=== PATIENT | female | born 1990 | race Caucasian/White ===

== ENCOUNTER 2020-12-03 13:52 | Emergency (ER) | payer OTHER, MEDICAID, SELFPAY ==
[2020-12-03 14:05] VITALS: BP 148/93; PULSE 87; RESP 18; TEMP 36.6; O2SAT 99; BMI 32.4
[2020-12-03 14:11] LABS: Add Manual Diff / Slide Review NO; Basophils Absolute Auto 100 /uL (0-100); Basophils Percent Auto 0.5 % (0-2); Eosinophils Absolute Auto 100 /uL (0-450); Eosinophils Percent Auto 0.5 % (2-4); Hematocrit 41.2 % (36-46); Hemoglobin 14.3 g/dL (12.0-16.0); Lymphocytes Absolute Auto 1900 /uL (1100-4500); Lymphocytes Percent Auto 18.9 % (25-40); Mean Corpuscular HGB Conc 34.8 % (30-36); Mean Corpuscular Hemoglobin 31.8 PG (26-34); Mean Corpuscular Volume 91.6 fL (80-100); Monocytes Absolute Auto 700 /uL (0-900); Monocytes Percent Auto 6.7 % (3-14); Neutrophils Absolute Auto 7500 /uL (1500-7000); Neutrophils Percent Auto 73.4 % (50-75); Platelet Count 245 X10^3/uL (150-400); Red Blood Cell Count 4.49 X10^6/uL (4.0-5.2); Red Cell Distribution Width 12.3 % (11.6-14.8); White Blood Cell Count 10.2 X10^3/uL (4.5-11.0)
--- NOTE | 2020-12-03 14:15 | ED_ITS ---
HPI - Chest Pain General Chief Complaint: Chest Pain Stated Complaint: chest pain on and off for 6 months, getting worse Time Seen by Provider: 12/03/20 13:58 Source: patient Mode of arrival: Ambulatory Limitations: no limitations History of Present Illness HPI narrative: Patient is a 30-year-old female who has intermittent chest pain off and on for the last 2 years. She says it comes and goes both at rest and wi th exertion. It lasts for about 10-15 minutes on the left side of her chest. It is non radiating. She has a lot of stress going on in her life she thinks it might be associated with stress. It is not associated with movement or deep breaths. She thinks she is her last menstrual cycle was in August she had 2- tests in October but then had a positive 1. Scheduled an OB appointment and thought she had it for next week but unfortunately they no longer have her appointment. She has some mild cramping she is nauseated but no vomiting. She has no vaginal bleeding. This is a wanted with a supportive partner. She called today about her and mentioned her [address] pain and was sent to emergency department MD complaint: chest pain Onset (ago): year(s) (2) Duration: intermittent Onset: during rest and during exertion Related Data Home Medications Medication Instructions Recorded Confirmed clonazepam #0 02/03/16 Review of Systems Review of Systems Narrative: GENERAL: Denies chills, fatigue, malaise, fever, sweats, travel HEENT: Denies sinus pain, ear pain, sore throat, difficulty swallowing, neck pain RESPIRATORY: Denies dyspnea, cough, wheezing, hemoptysis, sputum. CARDIOVASCULAR: See HPI GASTROINTESTINAL: + nausea : Denies dysuria, frequency, incontinence, hematuria, urinary retention, flank pain. MUSCULOSKELETAL: Denies weakness, joint pain, or bony pain SKIN: No rash, no erythema, no pruritus NEUROLOGIC: Denies weakness, dizziness, headache, numbness, change in speech, confusion PSYCHIATRIC: No concerning psychosocial issues. 12 point review of systems is negative except for those stated above and HPI Patient History Family History (Updated 12/03/20 @ 14:35 by Benita Cuevas DO) Mother Coronary artery disease Myocardial infarction Social History Smoking Status: Former smoker Smoking Status: Former smoker alcohol intake frequency: 0-2 drinks per day Substance Use Type: does not use Exam Initial Vital Signs Initial Vital Signs: Vital Signs Temperature 97.9 F 12/03/20 14:05 Pulse Rate 87 12/03/20 14:05 Respiratory Rate 18 12/03/20 14:05 Blood Pressure 148/93 H 12/03/20 14:05 Pulse Oximetry 99 12/03/20 14:05 GENERAL: Well-appearing, well-nourished and in no acute distress. HEENT: Head atraumatic,EOMI, pupils reactive, face symmetric, moist mucous membranes CARDIOVASCULAR: Regular rate and rhythm without murmurs, rubs or gallops. RESPIRATORY: Breath sounds equal bilaterally, no wheezes rales or rhonchi. ABDOMEN: Soft, nontender. Normoactive bowel sounds all 4 quadrants. No guarding or rebound. EXTREMITIES: Normal range of motion, no clubbing or edema. Neurovascularly intact NEUROLOGICAL: Alert and oriented x4.Normal gait and speech. Cranial nerves II through XII grossly intact. SKIN: Warm, dry, no laceration, no petechiae, no rashes or lesions. Course Orders Ordered: ED Orders 12/03/20 13:56 EKG-12 Lead Stat 12/03/20 14:03 Complete Blood Count AUTO DIFF Stat Comprehensive Metabolic Panel Stat HCG Quantitative /Beta subunit Stat Lipase Stat Troponin & CK Cardiac Panel Stat 12/03/20 14:28 US OB <= 14 weeks fetus Stat Vital Signs Vital signs: Vital Signs - 8 hr 12/03/20 14:05 12/03/20 15:31 12/03/20 15:35 Temperature 97.9 F Pulse Rate 87 94 H 90 Respiratory Rate 18 Blood Pressure 148/93 H 176/76 H Pulse Oximetry 99 99 99 MDM - Chest Pain Lab Data Attestation: I reviewed the patient's lab results. Result diagrams: 12/03/20 14:03 12/03/20 14:03 Labs: Lab Results 12/03/20 12/03/20 12/03/20 Range/Units 14:03 14:03 14:03 WBC 10.2 (4.5-11.0) X10^3/uL RBC 4.49 (4.0-5.2) X10^6/uL Hgb 14.3 (12.0-16.0) g/dL Hct 41.2 (36-46) % MCV 91.6 (80-100) fL MCH 31.8 (26-34) PG MCHC 34.8 (30-36) % RDW 12.3 (11.6-14.8) % Plt Count 245 (150-400) X10^3/uL Neut % (Auto) 73.4 (50-75) % Lymph % (Auto) 18.9 L (25-40) % [place] % (Auto) 6.7 (3-14) % Eos % (Auto) 0.5 L (2-4) % Baso % (Auto) 0.5 (0-2) % Neut # (Auto) 7500 H (0809-0917) /uL Lymph # (Auto) 1900 (3654-3561) /uL [place] # (Auto) 700 (0-900) /uL Eos # (Auto) 100 (0-450) /uL Baso # (Auto) 100 (0-100) /uL Sodium 137 (137-145) mmol/L Potassium 3.6 (3.4-5.1) mmol/L Chloride 104 (98-107) mmol/L Carbon Dioxide 23 (22-32) mmol/L BUN 10 (7-17) mg/dL Creatinine 0.52 (0.52-1.04) mg/dL Estimated GFR > 60.0 (>60) mL/min BUN/Creatinine Ratio 19.2 (6-22) Glucose 92 (70-100) mg/dL Calcium 10.0 (8.4-10.2) mg/dL Total Bilirubin 0.2 (0.2-1.3) mg/dL AST 29 (14-36) IU/L ALT 30 (<35) IU/L Alkaline Phosphatase 45 (38-126) U/L Total Creatine Kinase 26 L (30-135) U/L CK-MB (CK-2) TNP CK-MB (CK-2) Rel Index TNP Troponin I < 0.012 (0.01-0.034) ng/mL Total Protein 7.6 (6.3-8.2) g/dL Albumin 4.5 (3.5-5.0) g/dL Globulin 3.1 (1.7-4.1) g/dL Albumin/Globulin Ratio 1.5 (1.0-2.8) Lipase 138 (23-300) U/L HCG, Quant 21863 mIU/mL Urine Dip Bedside Urine Glucose Negative Bedside Urine Bilirubin - Negative Bedside Urine Ketone - Negative Urine Specific [place] 1.030 Bedside Urine Occult Blood - Negative Bedside Urine pH 6.0 Bedside Urine Protein - Negative Bedside Urine Urobilinogen - Negative Bedside Urine Nitrite - Negative Bedside Urine Leukocytes - Negative Esterase Imaging Data US - OB: Radiologist's Impression: PROCEDURE: US OB <= 14 WEEKS FETUS INDICATIONS: NO CARE OUTSIDE/PRIOR DATING DATA: Last menstrual period (LMP): 09/11/2020. LMP-based estimated date of delivery (ANTHONY): 06/18/2021. First dating scan (date and location): 12/03/2020 at . Estimated date of delivery (ANTHONY) from first dating scan: 06/19/2021. TECHNIQUE: Real-time scanning was performed of the fetus and maternal pelvic organs, with image documentation. Endovaginal scanning was also performed to better visualize the fetus and maternal ovaries. COMPARISON: None. FINDINGS: Embryo: There is a single living IUP with the estimated gestational age 11 weeks 5 days. cardiac activity is present with heart rate 171 BPM. A normal appearing yolk sac is noted. Measurement variability in dating: +/- 4 weeks by LMP, +/- 7 days by mean sac diameter (use before 6 weeks gestation if crown-rump length not able to be measured), +/- 5 days by crown-rump length (up to 8 weeks 6 days gestation), +/- 7 days by crown-rump length (up to 13 weeks 6 days gestation). Maternal organs: Ovaries are grossly normal. IMPRESSION: 1. A single living intrauterine gestation with an estimated gestational age of 11 weeks 5 days corresponding to ultrasound ANTHONY 06/19/2021. 2. Normal maternal ovaries. Dictated by: Derek Hdz M.D. on 12/03/2020 at 15:17 ECG Data Attestation: I personally reviewed and interpreted this ECG as follows: Prior ECG tracings: not available for review Interpretation: Normal sinus rhythm rate 91 p.r. interval 136 QRS [address] changes or T-wave inversions no priors to compare MDM Narrative Medical decision making narrative: Patient has been having this pain off and on for last 2 years it does not seem significantly worse or changed today. She has a normal EKG and negative troponin. She also has a healthy 11-week-old fetus. She will call and follow-up with OBGYN Discharge Plan Departure Patient Disposition: Home Clinical Impression: Atypical chest pain, Instructions: Common Discomforts and Bodily Changes During , DI for Atypical Chest Pain Activity Restrictions/Additional Instructions: *You have been diagnosed with atypical chest pain, *What to do: Congratulations you are 11 weeks date is 06/19/2021. Please follow-up with OBGYN for your care *Continue to take medications as directed vitamins once daily *Follow up with your primary care provider in 2-3 days *Return to ER if you should have increasing chest pain, shortness of breath, abdominal pain, vaginal bleeding or any new, worsening or concerning symptoms Prescriptions: No Action clonazepam 0.5 MG tablet Qty: 0 RF: 0 Referrals: Jelly Diehl ARNP [Primary Care Provider] -
--- NOTE | 2020-12-03 14:28 | DI.US.S_ITS ---
PROCEDURE: US OB <= 14 WEEKS FETUS INDICATIONS: NO CARE OUTSIDE/PRIOR DATING DATA: Last menstrual period (LMP): 09/11/2020. LMP-based estimated date of delivery (ANTHONY): 06/18/2021. First dating scan (date and location): 12/03/2020 at . Estimated date of delivery (ANTHONY) from first dating scan: 06/19/2021. TECHNIQUE: Real-time scanning was performed of the fetus and maternal pelvic organs, with image documentation. Endovaginal scanning was also performed to better visualize the fetus and maternal ovaries. COMPARISON: None. FINDINGS: Embryo: There is a single living IUP with the estimated gestational age 11 weeks 5 days. cardiac activity is present with heart rate 171 BPM. A normal appearing yolk sac is noted. Measurement variability in dating: +/- 4 weeks by LMP, +/- 7 days by mean sac diameter (use before 6 weeks gestation if crown-rump length not able to be measured), +/- 5 days by crown-rump length (up to 8 weeks 6 days gestation), +/- 7 days by crown-rump length (up to 13 weeks 6 days gestation). Maternal organs: Ovaries are grossly normal. IMPRESSION: 1. A single living intrauterine gestation with an estimated gestational age of 11 weeks 5 days corresponding to ultrasound ANTHONY 06/19/2021. 2. Normal maternal ovaries. Dictated by: Derek Hdz M.D. on 12/03/2020 at 15:17 Approved by: Derek Hdz M.D. on 12/03/2020 at 15:20
[2020-12-03 14:32] LABS: Alanine Aminotransferase 30 IU/L (<35); Albumin 4.5 g/dL (3.5-5.0); Albumin Globulin Ratio 1.5 (1.0-2.8); Alkaline Phosphatase 45 U/L (38-126); Aspartate Aminotransferase 29 IU/L (14-36); BUN Creatinine Ratio 19.2 (6-22); Bilirubin Total 0.2 mg/dL (0.2-1.3); Blood Urea Nitrogen 10 mg/dL (7-17); Carbon Dioxide 23 mmol/L (22-32); Chloride 104 mmol/L (98-107); Creatine Kinase 26 U/L (30-135); Estimated Glomerular Filt Rate > 60.0 mL/min (>60); Globulin 3.1 g/dL (1.7-4.1); Glucose 92 mg/dL (70-100); HEMOLYSIS < 15 (0-50); Lipase 138 U/L (23-300); Potassium 3.6 mmol/L (3.4-5.1); Sodium 137 mmol/L (137-145); Total Protein 7.6 g/dL (6.3-8.2)
[2020-12-03 14:43] LABS: Troponin I < 0.012 ng/mL (0.01-0.034)
[2020-12-03 15:20] LABS: HCG Quantitative /Beta subunit 62949 mIU/mL
[2020-12-03 15:31] VITALS: PULSE 94; O2SAT 99
[2020-12-03 15:35] VITALS: BP 176/76; PULSE 90; O2SAT 99
== END 2020-12-03 15:57 | disposition home or self-care (01) ==
PROVIDERS: Emergency Provider Emergency Medicine; PCP Registered Nurse Women's Health Care, Ambulatory
DX: O26.891 Other specified pregnancy related conditions, first trimester (principal); R07.89 Other chest pain; Z3A.11 11 weeks gestation of pregnancy
CPT/HCPCS: 36415; 76801; 80053; 81003; 82550; 83690; 84484; 84702; 85025; 93005; 99283; 99284

== ENCOUNTER 2020-12-09 19:06 | Emergency (ER) | payer OTHER, MEDICAID, SELFPAY ==
--- NOTE | 2020-12-09 19:12 | DI.RAD.S_ITS ---
PROCEDURE: XR WRIST LT MIN 3V INDICATIONS: laceration eval for bony involvement TECHNIQUE: 4 views of the wrist were acquired. COMPARISON: None. FINDINGS: Bones: No fractures or dislocations. No suspicious bony lesions. Scaphoid view: No trauma Soft tissues: No suspicious soft tissue calcifications. IMPRESSION: Fine bone detail is obscured by overlying splint/cast material. No fracture foreign body seen with this qualification. Dictated by: Ector Jean-Baptiste M.D. on 12/09/2020 at 20:09 Approved by: Ector Jean-Baptiste M.D. on 12/09/2020 at 20:09
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
[2020-12-09] MEDS: TET,DIPH,PERTUSS(ACELL),VAC/PF 0.5 ML SYRINGE IM (19:31)
[2020-12-09 19:34] VITALS: BP 110/50; BP 110/55; PULSE 72; PULSE 76; RESP 16; RESP 17; O2SAT 95; O2SAT 99
[2020-12-09] MEDS: CEFAZOLIN 1 GM VIAL 2 GM IV (19:34)
[2020-12-09] MEDS: SODIUM CHLORIDE 0.9% 1,000 ML 125 ML IV (19:34)
[2020-12-09 19:42] LABS: Add Manual Diff / Slide Review NO; Basophils Absolute Auto 100 /uL (0-100); Basophils Percent Auto 0.5 % (0-2); Eosinophils Absolute Auto 100 /uL (0-450); Eosinophils Percent Auto 1.3 % (2-4); Hematocrit 38.7 % (36-46); Lymphocytes Absolute Auto 2900 /uL (1100-4500); Lymphocytes Percent Auto 26.4 % (25-40); Mean Corpuscular HGB Conc 33.7 % (30-36); Mean Corpuscular Hemoglobin 31.1 PG (26-34); Mean Corpuscular Volume 92.3 fL (80-100); Monocytes Absolute Auto 1000 /uL (0-900); Monocytes Percent Auto 9.3 % (3-14); Neutrophils Absolute Auto 6800 /uL (1500-7000); Neutrophils Percent Auto 62.5 % (50-75); Platelet Count 268 X10^3/uL (150-400); Red Blood Cell Count 4.19 X10^6/uL (4.0-5.2); Red Cell Distribution Width 12.3 % (11.6-14.8); White Blood Cell Count 10.8 X10^3/uL (4.5-11.0)
[2020-12-09 19:43] LABS: COVID19 -Nasal RAPID Negative (Negative)
[2020-12-09 19:47] LABS: BUN Creatinine Ratio 19.1 (6-22); Blood Urea Nitrogen 9 mg/dL (7-17); Calcium 9.3 mg/dL (8.4-10.2); Carbon Dioxide 19 mmol/L (22-32); Chloride 102 mmol/L (98-107); Estimated Glomerular Filt Rate > 60.0 mL/min (>60); Glucose 104 mg/dL (70-100); HEMOLYSIS < 15 (0-50); Potassium 3.1 mmol/L (3.4-5.1); Sodium 134 mmol/L (137-145)
--- NOTE | 2020-12-09 19:47 | PC.NURSE ---
O2 sats for each finger of Left hand. Thumb: 99% (pink w/ quick cap refill) 2nd finger: 97% (pink w/ cap refill < 2 sec) 3rd finger: 96% (less pink than 2nd w/ cap refill < 2 sec) 4th finger 97% (pale / buchanan w/ cap refill 2 sec) 5th finger 98% (buchanan w/ cap refill 2-3 seconds)
[2020-12-09 19:55] VITALS: TEMP 36.4
[2020-12-09] MEDS: MORPHINE 4 MG/ML INJ IV ×2 (19:55→20:52)
[2020-12-09 19:57] VITALS: BP 110/59; PULSE 71; O2SAT 98
[2020-12-09] MEDS: ONDANSETRON 4 MG/2 ML INJ IV (19:59)
[2020-12-09 20:00] VITALS: BP 103/62; PULSE 74; RESP 14; O2SAT 96
[2020-12-09 20:30] VITALS: BP 109/64; PULSE 66; RESP 14; O2SAT 98
[2020-12-09 20:45] VITALS: BP 109/64; PULSE 72; O2SAT 100
== END 2020-12-09 20:58 | disposition short-term general hospital (02) ==
PROVIDERS: Emergency Provider Emergency Medicine
DX: S61.512A Laceration without foreign body of left wrist, initial encounter (principal); X78.0XXA Intentional self-harm by sharp glass, initial encounter; Z20.822 Contact with and (suspected) exposure to COVID-19; Z23 Encounter for immunization
CPT/HCPCS: 36415; 73110; 80048; 85025; 87635; 90471; 96361; 96374; 96375; 96376; 99284; 99291; C9803; 90715; J0690; J2270; J2405

== ENCOUNTER → 2021-01-10 13:53 | Outpatient (CLI) | payer OTHER, MEDICAID, SELFPAY ==
[2021-01-10 14:53] LABS: Add Manual Diff / Slide Review NO; Basophils Absolute Auto 0 /uL (0-100); Basophils Percent Auto 0.3 % (0-2); Eosinophils Absolute Auto 100 /uL (0-450); Eosinophils Percent Auto 0.8 % (2-4); Hematocrit 38.4 % (36-46); Hemoglobin 13.1 g/dL (12.0-16.0); Lymphocytes Absolute Auto 1600 /uL (1100-4500); Mean Corpuscular HGB Conc 34.1 % (30-36); Mean Corpuscular Hemoglobin 31.3 PG (26-34); Mean Corpuscular Volume 91.8 fL (80-100); Monocytes Absolute Auto 700 /uL (0-900); Monocytes Percent Auto 7.1 % (3-14); Neutrophils Absolute Auto 6800 /uL (1500-7000); Neutrophils Percent Auto 74.8 % (50-75); Platelet Count 222 X10^3/uL (150-400); Red Blood Cell Count 4.18 X10^6/uL (4.0-5.2); Red Cell Distribution Width 12.7 % (11.6-14.8); White Blood Cell Count 9.1 X10^3/uL (4.5-11.0)
[2021-01-10 16:01] LABS: Appearance Urine UA SL CLOUDY; Bilirubin Urine UA NEGATIVE (NEGATIVE); Color Urine UA YELLOW; Glucose Urine UA NEGATIVE (Negative); Ketones Urine UA NEGATIVE (NEGATIVE); Leukocyte Esterase Urine UA NEGATIVE (NEGATIVE); Nitrite Urine UA NEGATIVE (Negative); Occult Blood Urine UA NEGATIVE (Negative); Protein Urine UA NEGATIVE (Negative); Urobilinogen Urine UA 0.2 E.U./dL (0.2)
[2021-01-10 16:20] LABS: Hepatitis B Surface Antigen NEGATIVE s/c (NEGATIVE); Rubella Antibody IgG 5.2 IU/mL (>15)
[2021-01-10 16:43] LABS: HIV 1 & 2 Ab/Ag 4th Gen Combo NEGATIVE (NEGATIVE); Hep C Virus Ab w/Reflex Quant NEGATIVE s/c (NEGATIVE)
[2021-01-11 06:19] LABS: RPR Screen Non Reactive (Non Reactive)
[2021-01-11 09:55] LABS: Varicella IgG Antibody <135 index (Immune >165)
[2021-01-12 19:18] LABS: AFP, Serum 31.5 ng/mL (.); Calc Gestational Age Ultrasound (.); Estriol, Free 1.13 ng/mL (.); Inhibin A, Dimeric 80.55 pg/mL (.); Inhibin A, MoM See interpretation. (.); Maternal Ethnicity Caucasian (.); Maternal Weight 206 lbs (.); Number of Fetuses No (.); OSBR Risk 1 IN 10000 (.); Results Report (.); Test Results See interpretation. (.); hCG, MoM See interpretation. (.); hCG, Serum 34940 mIU/mL (.)
== END ==
PROVIDERS: Referring Provider Family Medicine; Visit Provider Family Medicine
DX: Z34.01 Encounter for supervision of normal first pregnancy, first trimester (principal)
CPT/HCPCS: 36415; 80055; 81003; 82105; 82677; 84702; 86336; 86787; 86803; 86850; 86900; 86901; 87086; 87389

== ENCOUNTER → 2021-01-11 12:26 | Outpatient (CLI) | payer OTHER, MEDICAID, SELFPAY ==
[2021-01-11 15:16] LABS: Urine N gonorrhoeae NOT DETECTED
[2021-01-11 15:21] LABS: Urine Chlamydia NOT DETECTED
== END ==
PROVIDERS: PCP Family Medicine; Referring Provider Family Medicine; Visit Provider Family Medicine
DX: Z34.90 Encounter for supervision of normal pregnancy, unspecified, unspecified trimester (principal)
CPT/HCPCS: 87491; 87591

== ENCOUNTER → 2021-02-04 12:47 | Outpatient (CLI) | payer OTHER, MEDICAID, SELFPAY ==
--- NOTE | 2021-02-04 12:48 | DI.US.S_ITS ---
PROCEDURE: US OB >= 14 WEEKS FETUS INDICATIONS: ANATOMY OUTSIDE/PRIOR DATING DATA: Last menstrual period (LMP): 09/11/2020. LMP-based estimated date of delivery (ANTHONY): 06/18/2021 . First dating scan (date and location): 12/03/2020 . Estimated date of delivery (ANTHONY) from first dating scan: 06/19/2021 . TECHNIQUE: Real-time scanning was performed of the fetus, with image documentation and biometric measurements. Endovaginal scanning: No COMPARISON: None. FINDINGS: General: A single living intrauterine gestation is present. Presentation: Variable. Placenta: Placental position is anterior , without previa. Amniotic fluid index: 18.9 cm, normal range is 5-24 cm. heart rate: 141 beats per minute. Maternal cervical canal: Not well seen biometrics: Biparietal diameter: 21 weeks 1 day Head circumference: 20 weeks 5 days Abdominal circumference: 21 weeks Femur length: 19 weeks 5 days Estimated gestational age from initial scan: 20 weeks 5 days Composite gestational age from present scan: 20 weeks 5 days Estimated weight and percentile: 357 g; 33rd percentile Measurement variability for biometric dating: +/- 7 days from 14 weeks to 15 weeks 6 days gestation, +/- 10 days from 16 weeks to 21 weeks 6 days gestation, +/- 2 weeks from 22 weeks to 27 weeks 6 days gestation, +/- 3 weeks for 28 weeks gestation or later. weight reference: 4500 g or EFW >90/95% is considered macrosomia or large for gestational age. EFW <10% is small for gestational age. EFW 5% or less is considered intra-uterine growth restriction. Anatomic survey: Neuro: Ventricles are non-dilated at less than 10 mm. Cisterna magna is normal at 3-11 mm. Cerebellum is normal in size and morphology. Nuchal skin fold: Normal at less than 6 mm between 14-21 weeks gestational age. Face: Nose and lips, facial profile are normal. Spine: No evidence for spina bifida. Heart: 4-chambered heart is present, with normal ventricular outflow tracts. Left ventricular intracardiac focus.+ Diaphragm: Diaphragm is intact. Stomach: Left-sided stomach is present. Kidneys: No hydronephrosis. Normal is less than 5 mm in 2nd trimester, less than 7 mm in 3rd trimester. Cord: 3-vessel cord has orthotopic insertion. Bladder: Normal in size. Extremities: All 4 extremities identified. Possible bilateral clubfoot. IMPRESSION: Echogenic intracardiac focus: 1.4-1.8 fold likelihood of Down syndrome. If isolated finding, consider aneuploidy screening with cell-free DNA. If aneuploidy screen is negative, no further evaluation needed. Possible clubfoot bilaterally; otherwise normal anatomic survey. Dictated by: Weston Prince [facility] Interpreted: Leticia Gross MD on 02/04/2021 at 16:52 Transcribed by: RAMIN on 02/04/2021 at 16:55 Approved by: Leticia Gross M.D. on 02/04/2021 at 17:40
== END ==
PROVIDERS: PCP Family Medicine; Referring Provider Family Medicine; Visit Provider Family Medicine
DX: Z34.92 Encounter for supervision of normal pregnancy, unspecified, second trimester (principal); Z3A.20 20 weeks gestation of pregnancy
CPT/HCPCS: 76811

== ENCOUNTER → 2021-05-29 19:04 | Outpatient (ROUT) | payer OTHER, MEDICAID, SELFPAY | PROVIDERS: PCP Family Medicine; Visit Provider Nurse Practitioner Obstetrics & Gynecology | DX: Z34.90 Encounter for supervision of normal pregnancy, unspecified, unspecified trimester (principal); Z36.85 Encounter for antenatal screening for Streptococcus B; Z3A.36 36 weeks gestation of pregnancy | CPT/HCPCS: 87081 ==

== ENCOUNTER 2021-06-15 16:29 | Outpatient (CLI) | payer OTHER, MEDICAID, SELFPAY ==
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
== END 2021-06-15 17:08 | disposition home or self-care (01) ==
LOC: OB 06-18 14:22
PROVIDERS: PCP Family Medicine; Referring Provider Nurse Practitioner Obstetrics & Gynecology; Visit Provider Nurse Practitioner Obstetrics & Gynecology
DX: Z03.71 Encounter for suspected problem with amniotic cavity and membrane ruled out (principal); Z3A.39 39 weeks gestation of pregnancy
CPT/HCPCS: 59025; 84112; G0378; G0379

== ENCOUNTER 2021-06-25 07:07 | Inpatient (IN) | payer OTHER, MEDICAID, SELFPAY ==
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
[2021-06-25] MEDS: miSOPROStoL 25 MCG TABLET 50 MCG PO ×3 (07:52→15:56)
[2021-06-25 08:11] LABS: COVID19 -Nasal RAPID Negative (Negative)
[2021-06-25 10:07] LABS: Add Manual Diff / Slide Review NO; Basophils Absolute Auto 0 /uL (0-100); Basophils Percent Auto 0.2 % (0-2); Eosinophils Absolute Auto 0 /uL (0-450); Eosinophils Percent Auto 0.2 % (2-4); Hematocrit 38.4 % (36-46); Hemoglobin 12.9 g/dL (12.0-16.0); Lymphocytes Absolute Auto 1700 /uL (1100-4500); Lymphocytes Percent Auto 12.1 % (25-40); Mean Corpuscular HGB Conc 33.6 % (30-36); Mean Corpuscular Hemoglobin 30.4 PG (26-34); Mean Corpuscular Volume 90.7 fL (80-100); Monocytes Absolute Auto 1100 /uL (0-900); Monocytes Percent Auto 7.7 % (3-14); Neutrophils Absolute Auto 11100 /uL (1500-7000); Neutrophils Percent Auto 79.8 % (50-75); Platelet Count 268 X10^3/uL (150-400); Red Blood Cell Count 4.23 X10^6/uL (4.0-5.2); White Blood Cell Count 13.9 X10^3/uL (4.5-11.0)
--- NOTE | 2021-06-25 18:56 | PM.OBPNLAB ---
Date/Time Date Patient Seen: 06/25/21 Time Patient Seen: 18:45 Pain Control Pain control: tolerating well ([place] more uncomfortable today with irregular contractions. Coping well. ) Comments: VS: BP 111/76, HR 68bpm, T 36.2C temporal Pelvic Exam Dilation (cm): 1.5 Effacement (%): 90 station: -3 Amniotic membrane status: Intact Comments: No cervical change after 3 doses of misoprostil. Contractions Contractions on admission: none Monitor mode: External Pitocin rate (mU/min): 0 Contraction frequency (min): 0 Contraction intensity: Mild Status status: Category l Heart Rate Baseline: 130 Monitor Accelerations: Present Monitor Decelerations: Absent Monitor Variability: Moderate Assessment and Plan Assessment: induction ongoing Plan: other Comments: Counseled on options for continued cervical ripening: Cervadil overnight vs Gilliam balloon w/ low dose pitocin. Zully elected cervical ripening balloon w/ pitocin. Gilliam balloon was placed and RN to start pitocin soon. Will reassess in 6 hours or sooner, if balloon comes out.
[2021-06-25] MEDS: LACTATED RINGERS 1,000 ML 100 ML IV (19:15)
[2021-06-25] MEDS: OXYTOCIN PREMIX 30 UNIT/500 ML PLAST..BAG IV (19:40)
[2021-06-25] MEDS: hydrOXYzine pamoate 25 MG CAPSULE 50 MG PO (20:20)
--- NOTE | 2021-06-26 06:52 | PM.OBPNLAB ---
Date/Time Date Patient Seen: 06/26/21 Time Patient Seen: 06:45 Pain Control Pain control: tolerating well (slept well overnight) Comments: Pitocin was started last night at 1915, reaching max dose of 1mu/min. Zully was restless and requested pitocin be shut off at 2100. RN stopped the pitocin and Zully's anxiety and restless ness improved and she was able to get some sleep. Gilliam balloon remains in place taped to her leg with slight traction. VS: BP 107/59, HR 99, T 35.8 C Temporal Pelvic Exam Dilation (cm): 2.5 Effacement (%): 90 station: -3 Amniotic membrane status: Intact Comments: Gilliam balloon tightly in place Contractions Contractions on admission: none Monitor mode: External Pitocin rate (mU/min): 0 Contraction frequency (min): 0 Contraction intensity: Mild Status status: Category l Heart Rate Baseline: 140 Monitor Accelerations: Present Monitor Decelerations: Absent Monitor Variability: Moderate Assessment and Plan Assessment: induction ongoing (Cervical ripening in progress) Plan: other Comments: Recommend starting low dose pitocin again to encourage cervical balloon ripening. Patient states she'll be able to tolerate this now that she got some sleep. Will reassess in 3-4 hours or sooner. If balloon not out at that time, will deflate and remove.
[2021-06-26] MEDS: OXYTOCIN PREMIX 30 UNIT/500 ML PLAST..BAG IV (08:30)
--- NOTE | 2021-06-26 11:17 | PM.OBPNLAB ---
Date/Time Date Patient Seen: 06/26/21 Time Patient Seen: 11:17 Pain Control Pain control: tolerating well Comments: Has been up and moving, feeling occasional stronger contraction. VS: BP 135/79, HR 111bpm, T 36.5C Temporal Pelvic Exam Dilation (cm): 4 Effacement (%): 90 station: -3 Amniotic membrane status: Intact Comments: Gilliam balloon pulled out easily during exam Contractions Monitor mode: External Pitocin rate (mU/min): 6 Contraction frequency (min): 2 Contraction duration (min): 1 Contraction pattern: Irregular Contraction intensity: Mild Status status: Category l Heart Rate Baseline: 14 Monitor Accelerations: Present Monitor Decelerations: Absent Monitor Variability: Moderate Assessment and Plan Assessment: induction ongoing Plan: other Comments: Continue pitocin titration to adequate contraction pattern now that her cervix is favorable. Recommend balanced rest and activity w/ lots of upright positions. Recheck cervix after 2 hours of strong contractions. Labor support PRN. Reassess in 4-6 hours or sooner, PRN.
--- NOTE | 2021-06-26 13:41 | PM.AN.REGBLK ---
Regional Block Pre-procedure Procedure: Continuous Lumbar Epidural for L&D Attending OB provider: Sonia Montez PMH/ROS narrative: term labor, no complications ASA Class: II Labs: Hct 38.4 % (36-46) 06/25/21 09:55 Plt Count 268 X10^3/uL (150-400) 06/25/21 09:55 Medications: Current Medications Generic Name Dose Route Start Last Admin Trade Name Freq PRN Reason Stop Dose Admin Acetaminophen 650 mg 06/25/21 07:37 Acetaminophen 325 Mg Tablet PO Q4HR PRN Fever/Mild Pain (1-3) Calcium Carbonate 1,000 mg 06/25/21 07:37 Calcium Carbonate 500 Mg Tab PO Q2H PRN Dyspepsia Carboprost Tromethamine 250 mcg 06/25/21 07:38 Carboprost 250 Mcg/Ml Ampul IM Q90M PRN Bleeding Diphenhydramine HCl 25 mg 06/26/21 13:40 Diphenhydramine 50 Mg/Ml Vial IV Q10M PRN Pruritis Lactated Ringer's 1,000 mls @ 100 mls/hr 06/25/21 07:45 06/25/21 19:15 Lactated Ringers IV 100 mls/hr CONT AGUS Administration Oxytocin/Lactated Ringer's 30 unit in 500 mls @ 200 mls/hr 06/25/21 07:38 Oxytocin Premix IV CONT PRN Bleeding Protocol Tranexamic Acid 1,000 mg/ 100 mls @ 200 mls/hr 06/25/21 07:38 Sodium Chloride IV NOW PRN Bleeding Oxytocin/Lactated Ringer's 30 unit in 500 mls @ 3 mls/hr 06/25/21 07:45 06/26/21 08:30 Oxytocin Premix IV 3 milliunit/min TITRATE AGUS 3 mls/hr Administration Protocol 3 MILLIUNIT/MIN FENT 2MCG/ML BUPIV 0.125% EPI 200 mcg in 100 mls @ 6 mls/hr 06/26/21 13:45 Fentanyl/Bupiv/Ns 2mcg/Ml - 0.125% EPIDURAL CONT AGUS Methylergonovine Maleate 0.2 mg 06/25/21 07:38 Methylergonovine 0.2 Mg Tablet PO Q6HR PRN Heavy Bleeding Methylergonovine Maleate 0.2 mg 06/25/21 07:38 Methylergonovine 0.2 Mg/Ml Vial IM NOW PRN Bleeding Misoprostol 50 mcg 06/25/21 07:37 06/25/21 15:56 Misoprostol 25 Mcg Tablet PO 50 mcg Q4HR PRN Administration Cervical Ripening Misoprostol 800 mcg 06/25/21 07:38 Misoprostol 200 Mcg Tablet WA NOW PRN Bleeding Misoprostol 1,000 mcg 06/25/21 07:38 Misoprostol 200 Mcg Tablet WA NOW PRN Bleeding Misoprostol 400 mcg 06/25/21 07:38 Misoprostol 200 Mcg Tablet SL NOW PRN Bleeding Nalbuphine HCl 2.5 mg 06/26/21 13:40 Nalbuphine 20 Mg/Ml Ampul IV Q10M PRN Pruritis Ondansetron HCl 4 mg 06/25/21 07:43 Ondansetron 4 Mg/2 Ml Inj IV Q4HR PRN Nausea And Vomiting Oxytocin 10 unit 06/25/21 07:38 Oxytocin 10 Unit/Ml Vial IM NOW PRN Bleeding Allergies: Allergies Allergy/AdvReac Type Severity Reaction Status Date / Time No Known Drug Allergies Allergy Verified 02/08/21 15:07 Procedure Insertion date: 06/26/21 Insertion time: 14:06 Prep/Local: betadine x3 and 1% lidocaine Interspace: L3-4 Patient position: sitting Needle: 18 gauge [employer] (CSE: 25g [place] through [employer], clear CSF, 1mL 0.25% bupiv MPF) Loss of resistance with: saline SITA at (cm): 6 Catheter placed at SKIN (cm): 12 Catheter in SPACE (cm): 6 Insertion: No CSF, No Blood, No Paresthesia with insertion, No Paresthesia with injection and No Test dose reaction Initial Medications TEST DOSE time: 14:07 TEST DOSE: 1.5% lidocaine with epinephrine 1:200k (mL): 3 BOLUS DOSE time: 14:17 BOLUS DOSE (mL): 3 BOLUS DOSE med: other (infusate) Infusion INFUSION: 0.125% bupivacaine and with fentanyl 2 mcg/mL Initial rate (mL/hr): 6 Subsequent interventions: 16:30 5mL clinician bolus and increased rate to 8mL/h 19:10 5mL clinician bolus and increased rate to 10mL/h Post-procedure Anesthesia time START: 14:03 Anesthesia time END: 00:01 Post-procedure Anesthesia Assessment: Yes CV function: HR/BP stable, Yes Resp function: RR/sat/airway adequate, Yes Mental status appropriate and No Anesthesia complications
[2021-06-26] MEDS: LACTATED RINGERS 1,000 ML 100 ML IV ×2 (14:07→19:16)
[2021-06-26] MEDS: FENT 2MCG/ML BUPIV 0.125% EPI 200 MCG/100 ML PLAST..BAG 6 MCG EPIDURAL ×2 (14:08→19:15)
--- NOTE | 2021-06-26 17:00 | PM.OBPNLAB ---
Date/Time Date Patient Seen: 06/26/21 Time Patient Seen: 17:00 Pain Control Pain control: epidural Comments: SROM, clear @ 1310 Strong contractions shortly after Epidural requested @ 1345 Resting comfortably since VS: BP 124/85, HR 82bpm, T 98.7 C Temporal Pelvic Exam Dilation (cm): 5.5 Effacement (%): 90 station: -3 Amniotic membrane status: Intact Contractions Contractions on admission: none Monitor mode: External Pitocin rate (mU/min): 16 Contraction frequency (min): 3 Contraction duration (min): 1 Contraction pattern: Regular Contraction intensity: Strong/Firm Status status: Category l Heart Rate Baseline: 130 Monitor Accelerations: Present Monitor Decelerations: Absent Monitor Variability: Moderate Assessment and Plan Assessment: active labor Plan: continuous present management Comments: Continue pitocin titration to adequate contraction pattern. Encourage frequent position changes.
--- NOTE | 2021-06-26 20:47 | PM.OBPNLAB ---
Date/Time Date Patient Seen: 06/26/21 Time Patient Seen: 20:25 Pain Control Pain control: epidural Comments: Notified of variable deceleration by RN and arrived at bedside w/ RN report of C/C/0 with pitocin @ 24mu/min and recent bolus. Pt is comfortable and not feeling any rectal pressure. VS: BP 122/87bpm, HR80, T 35.4C Temporal Pelvic Exam Dilation (cm): 10 Effacement (%): 100 station: 0 Amniotic membrane status: Leaking Contractions Monitor mode: External Pitocin rate (mU/min): 24 Contraction frequency (min): 2 Contraction duration (min): 1 Contraction pattern: Regular Contraction intensity: Strong/Firm Status status: Category l Heart Rate Baseline: 140 Monitor Accelerations: Present Monitor Decelerations: Variable Monitor Variability: Moderate Comments: Recently switched from Kay to standard external monitors and contraction pattern is picking up much better. Assessment and Plan Assessment: active labor Plan: continuous present management Comments: Anticipate beginning second stage and NSVB soon.
--- NOTE | 2021-06-27 00:25 | PM.OBPRVD ---
Events: Labor Induction (post dates) Labor & Delivery Delivery date: 06/27/21 Intrapartal Events: None Cervical ripening method: per Gilliam bulb protocol (and misoprostil x3 doses) Induction method: per pitocin protocol Delivery augmentation: pitocin Delivery monitor: external FHT and external uterine Route of delivery: Episiotomy description: None L&D Laceration Description: None Estimated blood loss (mL): 75 Anesthesia Type: Epidural Narrative: Zully labored well with epidural anesthesia and pitocin augmentation (max dose 24mu/min). Was checked and found to be C/C/+1 @ 2344. Zully pushed well with coaching and encouragement. NSVB of a vigorous baby boy in RO position w/ a double loose nuchal cord and terminal meconium. [place] was placed on maternal abdomen for drying and skin to skin. Remaining 30 units of pitocin in 500mL LR ws increased to 300mL/hr for AMTSL. After cessation of pulsation, the cord was double clamped by CNM and cut by FOB. Cord blood hold sample was collected. Gentle cord traction and single maternal push led to a spontaneous, Schultze delivery, of an apparently intact placenta, membranes and 3VC. Fundus immediately firm and bleeding minimal Vagina and perineum inspected and intact. QBL 75mL. Both mother and baby stable and skin to skin as I left the room. Baby 1: gender: Male Presentation: vertex Position: Left Occiput Anterior Placenta delivery description: Spontaneous Cord Vessel Description: 3 Vessels, Nuchal Cord (x2) and Loose score (1 min): 7 score (5 min): 9 weight: 3.677 kg Plan for aftercare: Routine care
[2021-06-27] MEDS: ACETAMINOPHEN 325 MG TABLET 650 MG PO ×3 (02:49→15:29)
[2021-06-27] MEDS: KETOROLAC 30 MG/ML VIAL IV (02:49)
[2021-06-27] MEDS: IBUPROFEN 600 MG TABLET PO ×2 (09:01→15:29)
--- NOTE | 2021-06-27 15:55 | PM.OBDS.1 ---
Discharge Providers Provider Date of admission: 06/25/21 07:07 Discharge Date: 06/27/21 Primary care physician: Sonido Wilkes MD Consults: 06/28/21 00:23 Consult to Junior Accountant Routine Comment: Discharge provider: Sonia Montez CNM Summary Hospital Course Date Patient Seen: 06/27/21 Time Patient Seen: 15:55 Diagnoses: o80 Hospital Course: Zully is 15 hours s/p NSVB without complications. She is voiding, ambulating and independently. Vaginal bleeding is moderate, without clots. She is tolerating a general diet and denies pain. is going well with tender nipples, but confident her son is getting a good, deep latch. remains present and supportive. They both request discharge to home [facility] and feel comfortable caring for their . Peripartum Data Infant Delivery Method: Natural Vaginal Laceration Description: None Episiotomy description: None complications: none 1: Gender: Male Disposition of : home Status at Discharge Cognitive/behavioral status at discharge: oriented and calm Functional status at discharge: independent ambulation Overall status at discharge: patient is progressing back to baseline Time Spent with Patient Time attestation: Total time spent providing and/or coordinating discharge services: Time spent: Less than 30 minutes Objective Labs Result Diagrams: 06/25/21 09:55 Exam Vital Signs (past 8 hours): BP 102/55, HR 84bpm, RR 16/min, T 97.8F Temporal Other: Fundus firm @ u-1, lochia small, without clots, perineum intact Discharge Plan Discharge Plan Patient Disposition: Home Provider Discharge Comment: with family escort Discharge orders & Medications Prescriptions: New ibuprofen 600 mg Tablet 600 mg PO Q6HR PRN (Reason: Pain, Mild (1-3)) 14 Days Qty: 60 0RF Continued prenat.vits,luciano,[id number]-gvpkw Tablet 1 tab PO DAILY 0RF Medication counseling provided by Pharmacist: No Follow up/Referrals: Sonido Wilkes MD [Primary Care Provider] - Sonia Montez CNM [[facility]] - (Follow-up 07/12/21@ 12:45pm by Telehealth Follow-up 08/08/21@ 3:00pm in office) Diet/Activity/Treatments Diet: Diet as Tolerated Activity: pelvic rest x 6 weeks Skin/Wound/Dressing Care Report to your healthcare provider any signs of infection, such as:: chills, fever, increased pain, unusual drainage and unusual redness Visit Report/Discharge Packet Instructions: Depression Discharge Data Primary Care Provider: Sonido Wilkes
[2021-06-27 19:51] VITALS: BP 102/55; PULSE 84; RESP 16; TEMP 36.6
== END 2021-06-27 22:00 | disposition home or self-care (01) | DRG 560 ==
PROVIDERS: Admitting Provider Nurse Practitioner Obstetrics & Gynecology; PCP Family Medicine; Referring Provider Nurse Practitioner Obstetrics & Gynecology; Visit Provider Nurse Practitioner Obstetrics & Gynecology
DX: O48.0 Post-term pregnancy (principal); Z3A.41 41 weeks gestation of pregnancy; Z37.0 Single live birth; O69.81X0 Labor and delivery complicated by cord around neck, without compression, not applicable or unspecified; O77.0 Labor and delivery complicated by meconium in amniotic fluid
CPT/HCPCS: 01967; 36415; 59050; 59200; 85025; 86850; 86900; 86901; 87635; C9803; G0379; J1885; J2590

== ENCOUNTER → 2023-06-18 12:05 | Outpatient (CLI) | payer OTHER, MEDICAID, SELFPAY ==
[2023-06-18 13:52] LABS: Add Manual Diff / Slide Review NO; Basophils Absolute Auto 100 /uL (0-100); Basophils Percent Auto 1.1 % (0-2); Eosinophils Absolute Auto 100 /uL (0-450); Eosinophils Percent Auto 1.1 % (2-4); Hematocrit 43.6 % (36-46); Hemoglobin 15.1 g/dL (12.0-16.0); Lymphocytes Absolute Auto 1700 /uL (1100-4500); Lymphocytes Percent Auto 27.7 % (25-40); Mean Corpuscular HGB Conc 34.6 % (30-36); Mean Corpuscular Hemoglobin 31.8 PG (26-34); Mean Corpuscular Volume 91.8 fL (80-100); Monocytes Absolute Auto 500 /uL (0-900); Monocytes Percent Auto 7.5 % (3-14); Neutrophils Absolute Auto 3900 /uL (1500-7000); Neutrophils Percent Auto 62.6 % (50-75); Platelet Count 285 X10^3/uL (150-400); Red Blood Cell Count 4.75 X10^6/uL (4.0-5.2); Red Cell Distribution Width 12.5 % (11.6-14.8); White Blood Cell Count 6.3 X10^3/uL (4.5-11.0)
[2023-06-18 14:11] LABS: Alanine Aminotransferase 45 IU/L (<35); Albumin 4.8 g/dL (3.5-5.0); Albumin Globulin Ratio 1.5 (1.0-2.8); Alkaline Phosphatase 66 U/L (38-126); Aspartate Aminotransferase 34 IU/L (14-36); BUN Creatinine Ratio 18.9 (6-22); Bilirubin Total 0.6 mg/dL (0.2-1.3); Blood Urea Nitrogen 10 mg/dL (7-17); Calcium 10.2 mg/dL (8.4-10.2); Carbon Dioxide 26 mmol/L (22-32); Chloride 100 mmol/L (98-107); Estimated Glomerular Filt Rate > 60 mL/min (>60); Globulin 3.2 g/dL (1.7-4.1); Glucose 89 mg/dL (70-100); HEMOLYSIS < 15 (0-50); Sodium 137 mmol/L (137-145)
[2023-06-18 14:41] LABS: TSH w/ Reflex to FT4 1.49 uIU/mL (0.47-4.68)
[2023-06-19 03:34] LABS: Cholesterol,Total 243 mg/dL (100-199); HDL Cholesterol 61 mg/dL (>39); LDL Cholesterol Cal 153 mg/dL (0-99); Triglycerides 164 mg/dL (0-149); VLDL Cholesterol Cal 29 mg/dL (5-40)
== END ==
PROVIDERS: PCP Nurse Practitioner Family; Referring Provider Nurse Practitioner Family; Visit Provider Nurse Practitioner Family
DX: F41.1 Generalized anxiety disorder (principal); F32.A Depression, unspecified; Z13.220 Encounter for screening for lipoid disorders
CPT/HCPCS: 36415; 80053; 80061; 84443; 85025

== ENCOUNTER → 2023-06-29 14:43 | Outpatient (CLI) | payer OTHER, MEDICAID, SELFPAY ==
[2023-06-29 15:31] LABS: Influenza A - CEPHEID Flu A NEGATIVE (NEGATIVE); Influenza B - CEPHEID Flu B NEGATIVE (NEGATIVE); Respiratory Syncytial Virus Negative (Negative)
[2023-06-29 15:53] LABS: COVID-19 CEPHEID 4-PLEX PCR Negative (Negative)
== END ==
PROVIDERS: PCP Nurse Practitioner Family; Visit Provider Physician Assistant
DX: R05.1 Acute cough (principal)
CPT/HCPCS: 0241U

== ENCOUNTER → 2023-07-17 11:33 | Outpatient (CLI) | payer OTHER, MEDICAID, SELFPAY ==
--- NOTE | 2023-07-17 11:34 | DI.CT.S_ITS ---
PROCEDURE: CT ABDOMEN PELVIS W CON INDICATIONS: Right lower quadrant pain TECHNIQUE: After the administration of intravenous contrast, axial sections acquired from the lung bases to the pubic symphysis. Coronal and sagittal reformats were performed. For radiation dose reduction, the following was used: automated exposure control, adjustment of mA and/or kV according to patient size. COMPARISON: None. FINDINGS: Image quality: Diagnostic. Lower Chest: No significant findings. ABDOMEN: Liver: No solid mass. Gallbladder: No radiopaque gallstones or wall thickening. Biliary ducts: No biliary dilation. Pancreas: No ductal dilation. Spleen: Size is within normal limits. Adrenal Glands: No adrenal nodules. Kidneys and Ureters: No hydronephrosis. No solid mass. No complex renal cystic lesion which requires follow up. Stomach and Bowel: Normal colonic caliber, without significant wall thickening. Normal appendix. Peritoneum: No abnormal intraperitoneal fluid. No free air. Ventral Wall: Small fat containing umbilical hernia. Abdominal Nodes: No retroperitoneal or mesenteric adenopathy by size criteria. Vessels: Aorta and inferior vena cava are normal in size. PELVIS: Pelvic Organs: Intrauterine device in place. The uterus and ovaries are otherwise normal in appearance for age. Bladder: Unremarkable. Pelvic Nodes: No enlarged lymph nodes. Miscellaneous: No inguinal hernias are seen. Bones: No aggressive osseous abnormality. IMPRESSION: No findings to explain patient's symptoms. No acute findings within the abdomen or pelvis. Normal appendix. Dictated by: Otis Mary M.D. on 07/17/2023 at 13:34 Approved by: Otis Mary M.D. on 07/17/2023 at 13:39
== END ==
LOC: CT 11:34
PROVIDERS: PCP Nurse Practitioner Family; Referring Provider Nurse Practitioner Family; Visit Provider Nurse Practitioner Family
DX: R10.31 Right lower quadrant pain (principal); K42.9 Umbilical hernia without obstruction or gangrene; Z97.5 Presence of (intrauterine) contraceptive device
CPT/HCPCS: 74177; Q9967

== ENCOUNTER → 2023-08-04 14:34 | Outpatient (CLI) | payer OTHER, MEDICAID, SELFPAY ==
--- NOTE | 2023-08-04 | DI.US.S_ITS ---
PROCEDURE: US PELVIC COMPLETE INDICATIONS: Right lower quadrant pain TECHNIQUE: Real-time scanning was performed of the pelvic organs, with image documentation. Additional endovaginal scanning was necessary due to incomplete visualization of the adnexal and endometrial structures by transabdominal scanning. COMPARISON: [facility], CT, CT ABDOMEN PELVIS W CON, 07/17/2023, 12:48. FINDINGS: Uterus: Uterus is anteverted and normal in size at 9.6 x 4.4 x 4.9 cm. The myometrium is homogeneous. The endometrium measures 9 mm combined thickness. No abnormal vascularity can be seen along the endometrial stripe. Ovaries: The right ovary measures 2.7 x 1.7 x 1.8 cm, with a calculated ovarian volume of 4.3 cc. The left ovary measures 4.1 x 2.5 x 3.1 cm, with a calculated ovarian volume of 16.5 cc. Within the left ovary, there is a complex cystic lesion seen measuring 1.6 x 1.8 x 3.9 cm. Less than 12 follicles can be seen in each ovary. No adnexal masses are seen. Normal appearing arterial and venous waveforms are confirmed to each ovary. Other: No pathologic free abdominal or pelvic fluid. IMPRESSION: 3.9 cm left ovarian complex cyst seen which may represent a hemorrhagic cyst or corpus luteum. - If it would be clinically appropriate, a followup pelvic ultrasound could be considered in 6 weeks to assure resolution/ improvement. We strive to produce accurate, complete, and clear reports of imaging services. To assist us in improving patient care, this report was composed using standard report templates and voice recognition software. Therefore, it may contain abnormal punctuation, insertions and/or omissions. Occasional wrong-word or sound-alike substitutions may occur. Though we review the report and make efforts to correct it, we do recommend that the report be read carefully in proper context to recognize any text inaccuracies. Dictated by: Phillip Goss M.D. on 08/04/2023 at 15:25 Approved by: Phillip Goss M.D. on 08/04/2023 at 15:32
== END ==
PROVIDERS: PCP Nurse Practitioner Family; Referring Provider Nurse Practitioner Family; Visit Provider Nurse Practitioner Family
DX: N83.292 Other ovarian cyst, left side (principal); R10.31 Right lower quadrant pain
CPT/HCPCS: 76817; 76856

== ENCOUNTER 2024-03-04 08:27 | Emergency (ER) | payer OTHER, MEDICAID, SELFPAY ==
[2024-03-04 08:38] VITALS: BP 167/109; PULSE 86; RESP 16; TEMP 37; O2SAT 95; BMI 33.3
[2024-03-04 08:59] VITALS: PULSE 67; O2SAT 98
[2024-03-04 09:00] VITALS: PULSE 68; O2SAT 98
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
[2024-03-04 09:30] LABS: COVID-19 CEPHEID 4-PLEX PCR Negative (Negative); Influenza A - CEPHEID Flu A NEGATIVE (NEGATIVE); Influenza B - CEPHEID Flu B NEGATIVE (NEGATIVE); Respiratory Syncytial Virus Negative (Negative)
[2024-03-04 09:46] VITALS: BP 165/96; PULSE 65; RESP 20; TEMP 36.6; O2SAT 97
== END 2024-03-04 09:54 | disposition home or self-care (01) ==
PROVIDERS: Emergency Provider Emergency Medicine; PCP Nurse Practitioner Family
DX: J06.9 Acute upper respiratory infection, unspecified (principal); Z11.52 Encounter for screening for COVID-19
CPT/HCPCS: 0241U; 99282